=== PATIENT | female | born 1950 | race Caucasian/White ===

== ENCOUNTER → 2022-03-22 | Outpatient (CLI) | payer MEDICARE, OTHER ==
[~2022-03-22] MED LIST: ATORVASTATIN CA20 MG PO; GLIP2.5ER PO; METFORMIN HCL500 M2 PO; ONDA4ODT MM; Prinivil10 MG PO
[2022-03-22 14:18] LABS: C DIFFICILE DNA NEGATIVE (Negative)
== END | disposition home or self-care (01) ==
LOC: LAB 07:30 → LAB SHORT 07:30
PROVIDERS: Emergency Medicine
DX: R19.7 Diarrhea, unspecified (principal); R10.13 Epigastric pain; Z98.84 Bariatric surgery status
CPT/HCPCS: 87493

== ENCOUNTER 2024-08-20 08:14 | Emergency (ER) | payer MEDICARE, OTHER ==
[~2024-08-20] VITALS: Ht 157.5 cm; Wt 58.5 kg
[~2024-08-20 08:14] MED LIST changes: +AMOCLA875 PO; +CEPH500 PO; +Norco 5-325 Ta1 EACH PO; +OZEMPIC0.25 MG/02 SQ
[2024-08-20] MEDS ORDERED: Ketorolac Tromethamine 15mg Vial IV ONE (08:30)
[2024-08-20] MEDS ORDERED: Morphine Sulfate 4 MG/1 ML Injection IV ONE ×2 (08:30→10:45)
[2024-08-20 08:43] LABS: BASOPHILS ABSOLUTE AUTO 0.08 K/mm3 (0.00-0.23); BASOPHILS PERCENT AUTO 1 % (0-2); EOSINOPHILS ABSOLUTE AUTO 0.17 K/mm3 (0.00-0.68); EOSINOPHILS PERCENT AUTO 2 % (0-6); Hematocrit 37.5 % (33.0-51.0); IMMATURE GRAN ABSOLUTE AUTO 0.03 K/mm3 (0.00-0.10); IMMATURE GRAN PERCENT AUTO 0 % (0-1); LYMPHOCYTES PERCENT AUTO 15 % (21-46); MONOCYTES ABSOLUTE AUTO 0.55 K/mm3 (0.16-1.47); MONOCYTES PERCENT AUTO 6 % (4-13); Mean Corpuscular Volume 87 fL (80-100); Mean Platelet Volume 9.3 fL (9.1-12.4); NEUTROPHILS ABSOLUTE AUTO 7.03 K/mm3 (1.96-9.15); NEUTROPHILS PERCENT AUTO 76 % (41-73); Platelet Count 248 K/mm3 (150-400); RDW Coefficient Variation 12.9 % (11.7-14.2); RDW Standard Deviation 41.2 fL (35.1-46.3); Red Blood Cell Count 4.29 M/mm3 (3.80-5.20); White Blood Cell Count 9.26 K/mm3 (4.00-11.30)
[2024-08-20 09:07] LABS: Albumin, Blood 3.9 g/dL (3.4-5.0); Albumin/Globulin Ratio 1.3 (0.8-1.8); Bilirubin, Total 0.3 mg/dL (0.1-1.0); Bun/Creatinine Ratio 25.9 (12.0-20.0); Calcium, Blood 9.7 mg/dL (8.5-10.1); Creatinine, Blood 0.77 mg/dL (0.40-1.00); Potassium, Blood 4.3 mmol/L (3.5-5.5); Total Protein, Blood 6.9 g/dL (6.4-8.2)
[2024-08-20] MEDS ORDERED: NS 1,000 ML IV SCH (09:45)
[2024-08-20] MEDS ORDERED: Lisinopril 10 MG Tab PO ONE (10:20)
[2024-08-20 11:41] LABS: Source, Urine Clean Catch
[2024-08-20 12:15] LABS: Appearance, Urine Clear (Clear); Bilirubin, Urine Neg (Neg); Blood, Urine 5+ (Neg); Color, Urine Yellow (P-Yellow); Glucose Qualitative, Urine 1+ (Neg); Ketones, Urine Neg (Neg); Leukocyte Esterase, Urine Neg (Neg); Nitrite, Urine Neg (Neg); Protein, Urine Neg (Neg); Urobilinogen, Urine NORM (Normal)
[2024-08-20 12:52] LABS: White Blood Cells, Urine 0-2 /hpf (0-5)
[2024-08-20 12:53] LABS: Red Blood Cells, Urine 25-50 /hpf (0-2)
[2024-08-20 12:54] LABS: Bacteria Not Seen /hpf; Squamous Epithelial Cells Rare /hpf (Few)
[2024-08-20] MEDS ORDERED: MIRALAX17 GM PO (13:04)
[2024-08-20] MEDS ORDERED: ACET500 PO (13:04)
[2024-08-20] MEDS ORDERED: OXYC5 PO (13:04)
[2024-08-20] MEDS ORDERED: ONDA4ODT MM (13:04)
[2024-08-20 13:30] VITALS: BP 170/80
== END 2024-08-20 13:45 | disposition home or self-care (01) ==
LOC: ER 08:14
PROVIDERS: Emergency Medicine
DX: N13.2 Hydronephrosis with renal and ureteral calculous obstruction (principal); E11.9 Type 2 diabetes mellitus without complications; I10 Essential (primary) hypertension; Z79.899 Other long term (current) drug therapy; Z79.84 Long term (current) use of oral hypoglycemic drugs
CPT/HCPCS: 74176; 80053; 81001; 85025; 96361; 96374; 96375; 96376; 99284-25; A9270; J1885; J2270; J7030

== ENCOUNTER → 2024-10-01 | Outpatient (CLI) | payer MEDICARE, OTHER ==
[~2024-10-01] MED LIST changes: +ACET500 PO; +MIRALAX17 GM PO; +OXYC5 PO
[2024-10-08 10:12] LABS: CALCIUM, URINE - PER 24H 61 mg/d (100-250); CALCIUM, URINE - PER VOLUME 3.4 mg/dL; CHLORIDE, URINE - PER 24H 146 mmol/d (140-250); CHLORIDE, URINE - PER VOLUME 81 mmol/L; CITRIC ACID, URINE - PER 24H 365 mg/d (320-1240); CITRIC ACID,URINE - PER VOLUME 203 mg/L; CREATININE, URINE - PER 24H 918 mg/d (500-1400); CREATININE, URINE - PER VOLUME 51 mg/dL; HOURS COLLECTED 24 hr; MAGNESIUM, URINE - PER VOLUME 6.9 mg/dL; MAGNESIUM, URINE PER 24H 124 mg/d (12-199); OXALATE, URINE - PER 24H 112 mg/d (13-40); OXALATE, URINE - PER VOLUME 62 mg/L; PH, URINE 6.15 (5.00-7.50); PHOSPHORUS, URINE - PER 24H 450 mg/d (400-1300); PHOSPHORUS, URINE - PER VOLUME 25 mg/dL; POTASSIUM, URINE - PER 24H 74 mmol/d (25-125); POTASSIUM, URINE - PER VOLUME 41 mmol/L; SODIUM, URINE - PER 24H 146 mmol/d (51-286); SODIUM, URINE - PER VOLUME 81 mmol/L; SULFATE, URINE - PER 24H 13 mmol/d (6-30); SULFATE, URINE - PER VOLUME 7 mmol/L; TOTAL VOLUME 1800 mL; URIC ACID, URINE - PER 24H 356 mg/d (250-750); URIC ACID, URINE - PER VOLUME 19.8 mg/dL; URINE SUPERSATURATION INTERP Abnormal; URINE SUPERSATURATION, CAHPO4 0.35; URINE SUPERSATURATION, CAOX 6.55; URINE SUPERSATURATION, UA CALC 0.22
== END ==
LOC: LAB SHORT 12:14 → LAB 12:14
PROVIDERS: Urology
DX: N20.2 Calculus of kidney with calculus of ureter (principal)
CPT/HCPCS: 81003; 81050; 82131; 82140; 82340; 82436; 82507; 82570; 83735; 83935; 83945; 84105; 84133; 84300; 84392; 84560